=== PATIENT | male | born 1995 | race Caucasian/White ===

== ENCOUNTER 2024-11-16 07:15 | Emergency (ER) | payer BC, OTHER ==
[~2024-11-16] VITALS: Ht 177.8 cm; Wt 105.0 kg
[2024-11-16 07:38] VITALS: BP 138/85; PULSE 76; RESP 16; TEMP 98; O2SAT 99
--- NOTE | 2024-11-16 07:38 | ED.PDOC ---
Musculoskeletal HPI Comments A 29 YEAR OLD MALE PRESENTS TO THE ED WITH COMPLAINT OF LEFT KNEE PAIN S/P FALL. PATIENT STATES HE ACCIDENTALLY SLIPPED AND FELL 2 DAYS AGO AND HIT HIS LEFT KNEE ON THE GROUND. PATIENT REPORTS HE IS NOW EXPERIENCING LEFT KNEE PAIN. THE PATIENT NOTES HE HAS A HISTORY OF A PREVIOUS LEFT KNEE FRACTURE IN THE PAST. PATIENT DENIES HEAD INJURY, NECK INJURY, LOC, FEVER, CHILLS, SHORTNESS OF BREATH, CHEST PAIN, ABDOMINAL PAIN, NAUSEA, VOMITING, HEADACHE, OR OTHER COMPLAINTS. NO OTHER SYMPTOMS OR MODIFYING FACTORS AT THIS TIME. PATIENT IS ALERT, ORIENTED X 4, AND HAS STEADY GAIT. Chief Complaint: Lower Extremity Time Seen by MD: 07:29 Reviewed Notes: Nurses Notes, Medications, Allergies Home Meds Active Scripts Ibuprofen (Ibuprofen) 800 Mg Tab, 1 TAB PO TID, #40 TAB Prov:ROBIN LEW 11/16/24 Information Source: Patient Mode of Arrival: Ambulatory Location: Left Extremity Location: Knee Timing: Days Prehospital treatment: None Severity: Moderate Able to Move Extremity: Yes Bear Weight: Fully Pain: Moderate Mechanism: Blunt Trauma Circumstances: Fall Onset of Symptoms: After Trauma Symptoms: Pain DVT Risk Factors: NONE Last Tetanus: Unknown Associated signs and symptoms: Knee pain Past Medical History Past Medical History (Other): LEFT KNEE FX Surgical History: Denies all surgeries Family History Family History: Reviewed,noncontributory to illness Social History Smoker: Non-Smoker Alcohol: Denies ETOH Use Drugs: Denies Drug Use Lives In: Home Constitutional: denies: chills, diaphoresis, fatigue, fever, malaise, sweats, weakness, others EENTM: denies: blurred vision, double vision, ear bleeding, ear discharge, ear drainage, ear pain, ear ringing, eye pain, eye redness, hearing loss, mouth pain, mouth swelling, nasal discharge, nose bleeding, nose congestion, nose pain, photophobia, tearing, throat pain, throat swelling, voice changes, others Respiratory: denies: cough, hemoptysis, orthopnea, SOB at rest, shortness of breath, SOB with excertion, stridor, wheezing, others Cardiovascular: denies: chest pain, dizzy spells, diaphoresis, Dyspnea on exertion, edema, irregular heart beat, left arm pain, lightheadedness, palpitations, PND, syncope, others Gastrointestinal: denies: abdomen distended, abdominal pain, blood streaked bowels, constipated, diarrhea, dysphagia, difficulty swallowing, hematemesis, melena, nausea, poor appetite, poor fluid intake, rectal bleeding, rectal pain, vomiting, others Genitourinary: denies: burning, dysuria, flank pain, frequency, hematuria, incontinence, penile discharge, penile sore, pain, testicle pain, testicle swelling, urgency, others Neurological: denies: dizziness, fainting, headache, left sided numbness, left sided weakness, numbness, paresthesia, pre-existing deficit, right sided numbness, right sided weakness, seizure, speech problems, tingling, tremors, weakness, others Musculoskeletal: reports: joint pain, joint swelling, others (LEFT KNEE PAIN); denies: back pain, gout, muscle pain, muscle stiffness, neck pain Integumetry: denies: bruises, change in color, change in hair/nails, dryness, laceration, lesions, lumps, rash, wounds, others Allergic/Immunocompromised: denies: Difficulty Healing, Frequent Infections, Hives, Itching, others Hematologic/Lymphatic: denies: anemia, blood clots, easy bleeding, easy bruising, swollen glands, others Endocrine: denies: excessive hunger, excessive sweating, excessive thirst, excessive urination, flushing, intolerance to cold, intolerance to heat, unexplained weight gain, unexplained weight loss, others Psychiatric: denies: anxiety, bipolar disorder, depression, hopeless, panic disorder, schizophrenia, sleepless, suicidal, others All Other Systems: Reviewed and Negative Physical Exam General Appearance: No Apparent Distress, Obese HEENT: Normal ENT Inspection, PERRL/EOMI, Pharynx Normal, TMs Normal Neck: Full Range of Motion, Non-Tender, Normal, Normal Inspection Respiratory: Chest Non-Tender, Lungs Clear, No Accessory Muscle Use, No Respiratory Distress, Normal Breath Sounds Cardiovascular: No Edema, No JVD, No Murmur, No Gallop, Normal Peripheral Pulses, Regular Rate/Rhythm Breast Exam: Deferred Gastrointestinal: No Organomegaly, Non Tender, No Pulsatile Mass, Normal Bowel Sounds, Soft Genitalia: Deferred Pelvic: Deferred Rectal: Deferred Extremities: No calf tenderness, Normal capillary refill, Normal range of motion, No pedal edema, Swelling (TENDERNESS AND MILD SWELLING ON LEFT KNEE. ), Tender (AND MILD SWELLING ON LEFT KNEE, NO BONY TENDERNESS AND DEFORMITY. ) Musculoskeletal : Apperance: Normal Neurologic: Alert, inside sales assistant II-XII nml as Tested, No Motor Deficits, Normal Affect, Normal Mood, No Sensory Deficits Cerebellar Function: Normal Reflexes: Normal Skin: Dry, Normal Color, Warm Peripheral Pulses: 2+ carotid (R), 2+ carotid (L), 2+ dorsalis pedis (R), 2+ dorsalis pedis (L) Lymphatic: No Adenopathy Was a procedure done? Was a procedure done?: No Differential Diagnosis EXT Differential Diagnosis: Fracture, Sprain, Dislocation, Contusion, Strain, Arthritis, Bursitis X-Ray, Labs, Meds, VS Vital Signs Date Time Temp Pulse Resp B/P (MAP) Pulse Ox O2 Delivery O2 Flow Rate FiO2 11/16/24 07:38 98.0 76 16 138/85 (102) 99 98.0 11/16/24 07:38 76 16 99 Room Air 11/16/24 07:30 98.0 76 16 138/85 (102) 9 Current Medications Medications (Trade) Dose Ordered Sig/Ayden Route Start Time Stop Time Status Last Admin Ketorolac Tromethamine (Toradol Injection) 60 mg ONCE ONCE IM 11/16/24 08:15 11/16/24 08:16 DC 11/16/24 08:13 CLINICAL INFORMATION: 29 years old, Male; fall injury 2 days ago. Pain. TECHNIQUE: 3 views of the left knee were obtained. COMPARISON: None FINDINGS: No acute fracture or dislocation. Moderate arthritic changes involving all 3 compartments. There are 2 chronic appearing ossicles along the posterior aspect of the left knee, 1 of which is consistent with a fabella. The other ossicle is of uncertain etiology, can not exclude loose body. No focal soft tissue swelling. Moderate to large joint effusion. IMPRESSION: 1. No evidence of acute bony abnormality. 2. Moderate to large joint effusion. 3. Chronic appearing ossicles along the posterior aspect of the left knee, 1 of which is consistent with a fabella, while the other ossicle is of uncertain etiology. Can not exclude loose body. 4. Arthritic changes as described above. ATED BY: GARO MADERA DO DICTATED DATE/TIME: 11/16/24816 SIGNED BY: GARO MADERA DO SIGNED DATE/TIME: 11/16/24816 CC: X-Ray, Labs, Meds, VS Comment EXTERNAL MEDICAL RECORDS REVIEWED: [NONE] INDEPENDENT HISTORIANS: [NONE] SOCIAL DETERMINANTS OF HEALTH: [NONE] LABS ORDERED: NONE REVIEWED AND INTERPRETED RESULTS: NONE IMAGING ORDERED: XR KNEE LT TREATMENTS ORDERED: TORADOL 60 MG IM, NEENA WRAP APPLIED TO PATIENT'S LEFT KNEE. PROCEDURES PERFORMED: NONE CRITICAL CARE TIME: NONE I HAVE DISCUSSED THE PATIENT WITH THE ATTENDING PHYSICIAN DR. HILL AND HE AGREES WITH THE PATIENT'S PLAN OF CARE AND DISPOSITION. BASED ON HISTORY OF PRESENT ILLNESS, AND PHYSICAL EXAM, PATIENT WILL BE DISCHARG ED HOME. SHARED DECISION MAKING: PATIENT INSTRUCTED TO FOLLOW UP WITH PRIMARY CARE PROVIDER IN 1-2 DAYS FOR RE-EVALUATION OF SYMPTOMS. PATIENT VERBALIZES UNDERSTANDING TO RETURN TO ED FOR NEW OR WORSENING SYMPTOMS OR IF FOLLOW UP WITH PCP CANNOT BE OBTAINED. PATIENT FEELS COMFORTABLE GOING HOME AT THIS TIME. ALL QUESTIONS ADDRESSED AT TIME OF DISCHARGE. Images Reviewed?: Images reviewed and evaluated by me Time of 1ST Reevaluation: 08:40 Reevaluation 1ST: Improved Patient Education/Counseling: Diagnosis, Treatment, Need For Follow Up Family Education/Counseling: Diagnosis, Treatment, Need For Follow Up Medical Screening: No EMC Exist At This Time Departure 1 Departure Time of Disposition: 08:40 Impression: Primary Impression: Sprain of left knee Qualified Codes: S83.92XA - Sprain of unspecified site of left knee, initial encounter Additional Impressions: Degenerative joint disease of left knee Qualified Codes: M17.12 - Unilateral primary osteoarthritis, left knee Status post fall Disposition: 01 HOME / SELF CARE / HOMELESS Condition: Stable Additional Instructions: FOLLOW-UP WITH PCP IN 1 TO 2 DAYS. TAKE MEDICATIONS PRESCRIBED. RETURN TO ED FOR ANY NEW OR WORSENING SYMPTOMS. e-Prescriptions Ibuprofen (Ibuprofen) 800 Mg Tab 1 TAB PO TID, #40 TAB Prov: ROBIN LEW 11/16/24 Discharged With: Self Critical Care Note Critical Care Time?: No Stability Stability form required: No I personally scribed for ROBIN LEW ([email or web address]) on 11/16/24 at 07:38. Electronically submitted by Fercho Arroyo ([email or web address]). I personally scribed for ROBIN LEW ([email or web address]) on 11/16/24 at 08:28. Electronically submitted by Fercho Arroyo ([email or web address]). ROBIN LEW Nov 16, 2024 07:38
[2024-11-16] MEDS: KETOROLAC TROMETH 60MG/2ML VIAL IM ONE (08:13)
--- NOTE | 2024-11-16 08:20 | DVH ---
CLINICAL INFORMATION: 29 years old, Male; fall injury 2 days ago. Pain. TECHNIQUE: 3 views of the left knee were obtained. COMPARISON: None FINDINGS: No acute fracture or dislocation. Moderate arthritic changes involving all 3 compartments. There are 2 chronic appearing ossicles along the posterior aspect of the left knee, 1 of which is con sistent with a fabella. The other ossicle is of uncertain etiology, can not exclude loose body. No f ocal soft tissue swelling. Moderate to large joint effusion. IMPRESSION: 1. No evidence of acute bony abnormality. 2. Moderate to large joint effusion. 3. Chronic appearing ossicles along the posterior aspect of the left knee, 1 of which is consistent w ith a fabella, while the other ossicle is of uncertain etiology. Can not exclude loose body. 4. Arthritic changes as described above.
[2024-11-16] MEDS ORDERED: IBUP-1456 PO (08:26)
== END 2024-11-16 08:34 | disposition home or self-care (01) ==
LOC: ER 07:15
DX: S83.8X2A Sprain of other specified parts of left knee, initial encounter (principal); M17.12 Unilateral primary osteoarthritis, left knee; W01.0XXA Fall on same level from slipping, tripping and stumbling without subsequent striking against object, initial encounter; Y93.89 Activity, other specified; Y92.89 Other specified places as the place of occurrence of the external cause; Y99.8 Other external cause status
CPT/HCPCS: 73562; 96372; 99283; J1885